=== PATIENT | male | born 1970 | race Two or more races ===

== ENCOUNTER 2019-12-08 06:44 | Emergency (ER) | payer OTHER ==
[~2019-12-08] VITALS: Ht 175.3 cm; Wt 95.3 kg
[2019-12-08] MEDS ORDERED: ETODOLAC500 MG (07:10)
== END 2019-12-08 08:12 | disposition home or self-care (01) ==
LOC: ER 06:44
DX: R21 Rash and other nonspecific skin eruption (principal); L29.8 Other pruritus; T78.49XA Other allergy, initial encounter; X58.XXXA Exposure to other specified factors, initial encounter